=== PATIENT | male | born 1985 | race Caucasian/White ===

== ENCOUNTER 2018-05-16 13:48 | Emergency (ER) | payer OTHER ==
[~2018-05-16] VITALS: Ht 182.9 cm; Wt 99.8 kg
[~2018-05-16 13:48] MED LIST: NOHOMEMEDICATIONS
[2018-05-16 14:20] LABS: URINE BILIRUBIN NEGATIVE (Negative); URINE BLOOD TRACE (Negative); URINE CLARITY CLEAR; URINE COLOR YELLOW; URINE GLUCOSE-RANDOM NEGATIVE (Negative); URINE KETONES NEGATIVE (Negative); URINE LEUKOCYTES-REFLEX NEGATIVE (Negative); URINE NITRITE-REFLEX NEGATIVE (Negative); URINE PROTEIN NEGATIVE (Negative); URINE SPECIFIC GRAVITY 1.015 (1.005-1.030); URINE UROBILINOGEN 0.2 E.U./dl (0.2-1.0)
[2018-05-16 14:22] LABS: HEMATOCRIT 42.5 % (42.0-52.0); HEMOGLOBIN 15.2 gm/dL (14.0-18.0); MCH 30.5 pg (26.0-34.0); MCHC 35.9 g/dL (28.0-37.0); MCV 84.9 fL (80.0-100.0); MPV 9.1 fl. (7.2-11.1); NUCLEATED RBCS 0 /100WBC; PLATELET COUNT* 158 thou/uL (150-400); RDW-CV 13.2 % (10.5-14.5); WBC 6.3 thou/uL (4.0-11.0)
[2018-05-16 14:34] LABS: CALCIUM 8.7 mg/dL (8.5-10.1); CREATININE 1.1 mg/dL (0.6-1.3); POTASSIUM 3.4 mmol/L (3.5-5.1)
[2018-05-16 16:07] LABS: INFLUENZA B ANTIGEN None Detected (None Detect)
[2018-05-16 16:15] LABS: ABSOLUTE LYMPHOCYTES 0.6 thou/uL (0.8-5.3); ABSOLUTE MONOCYTES 0.6 thou/uL (0.0-1.2)
[2018-05-16 16:17] LABS: PLATELET ESTIMATE ADEQUATE
[2018-05-16] MEDS ORDERED: OSELB75 PO (16:17)
[2018-05-16 16:27] VITALS: BP 123/73
== END 2018-05-16 16:27 | disposition home or self-care (01) ==
LOC: M.ERS 13:48
PROVIDERS: Nurse Practitioner Psychiatric/Mental Health
DX: J10.1 Influenza due to other identified influenza virus with other respiratory manifestations (principal); Z88.6 Allergy status to analgesic agent

== ENCOUNTER 2019-08-04 09:48 | Emergency (ER) | payer OTHER ==
[~2019-08-04] VITALS: Ht 182.9 cm; Wt 99.8 kg
[~2019-08-04 09:48] MED LIST changes: +OSELB75 PO
[2019-08-04 10:39] LABS: CALCIUM 9.6 mg/dL (8.5-10.1); CREATININE 0.9 mg/dL (0.6-1.3); POTASSIUM 4.4 mmol/L (3.5-5.1)
[2019-08-04 10:44] LABS: TOTAL BILIRUBIN 0.9 mg/dL (<0.1-1.0); TOTAL PROTEIN 8.3 g/dL (6.4-8.2)
[2019-08-04 10:45] LABS: ABSOLUTE LYMPHOCYTES 1.4 thou/uL (0.8-5.3); NUCLEATED RBCS 0 /100WBC
[2019-08-04 10:47] LABS: ABSOLUTE BASOPHILS 0.1 thou/uL (0.0-0.2); ABSOLUTE EOSINOPHILS 0.1 thou/uL (0.0-0.7); ABSOLUTE MONOCYTES 0.6 thou/uL (0.0-1.2); BASOPHILS 0.6 %; EOSINOPHILS 0.6 %; HEMATOCRIT 45.9 % (42.0-52.0); HEMOGLOBIN 16.3 gm/dL (14.0-18.0); LYMPHOCYTES 10.5 %; MCH 30.5 pg (26.0-34.0); MCHC 35.5 g/dL (28.0-37.0); MCV 85.8 fL (80.0-100.0); MONOCYTES 4.2 %; MPV 10.2 fl. (7.2-11.1); PLATELET COUNT* 150 thou/uL (150-400); POLYS 84.1 %; RBC 5.35 mil/uL (4.50-6.00); RDW-CV 13.4 % (10.5-14.5); WBC 13.1 thou/uL (4.0-11.0)
[2019-08-04] MEDS ORDERED: NORCO 5-325 TA1 EAC1 PO (11:01)
[2019-08-04] MEDS ORDERED: FLEXERIL PO (11:01)
[2019-08-04 11:08] LABS: PROTIME 10.7 Seconds (9.20-11.50)
[2019-08-04 12:36] VITALS: BP 131/77
== END 2019-08-04 12:35 | disposition short-term general hospital (02) ==
LOC: M.ERS 09:48
PROVIDERS: Family Medicine
DX: I62.9 Nontraumatic intracranial hemorrhage, unspecified (principal); Z88.6 Allergy status to analgesic agent